=== PATIENT | female | born 1940 | race Caucasian/White ===

== ENCOUNTER 2023-11-05 06:08 | Day surgery (SDC) | payer MEDICARE, OTHER, SELFPAY ==
--- NOTE | 2023-10-05 10:08 | CM ---
Patient is scheduled for an elective L TKR on 11/20- he is a same day patient. Spoke with patient prior to surgery. Introduced role of Orthopedic Navigator. Patient reports that she lives with her in a two story home. There are three steps
to enter and a flight of steps to the second floor. She currently functions independently. She has a cane and rolling walker. She has had VN services through [facility]. PCP is Joelle Christensen.
Discussed orthopedic program and post surgical plans. Reviewed that she will have VN services initially ([email or web address].gov website and ratings reviewed) and will then start outpatient PT. Patient selects [facility] (face sheet faxed to [facility] to facilitate
confirmation of benefits) for her home care needs and will go to [facility] for outpatient PT.
Patient is in agreement with plan and states that her will be home with her.
Patient will complete online education.
Plan: Orthopedic Navigator will remain available to assist with the care of patient and will reassess discharge needs after surgery.
[2023-10-17 13:24] VITALS: BMI 23.8
[2023-10-17 13:45] LABS: Hematocrit 34.8 % (37.0-47.0); Hemoglobin 11.7 g/dL (12.0-16.0); Mean Corp Hgb Conc. 33.6 g/dL (33.0-37.0); Mean Corpuscular Hgb 32.3 pg (27.0-31.0); Mean Corpuscular Volume 96.1 fL (81.0-99.0); Mean Platelet Volume 11.2 fL (7.4-10.4); Platelet Count 277 10^3/uL (130-400); Red Blood Cell Count 3.62 10^6/uL (4.20-5.40); Red Cell Dist. Width 13.4 % (11.5-14.5); White Blood Cell Count 4.8 10^3/uL (4.8-10.8)
[2023-10-17 14:03] LABS: ALT (SGPT) 17 U/L (0-35); AST (SGOT) 32 U/L (14-36); Albumin 4.1 g/dl (3.5-5.0); Alkaline Phosphatase 57 U/L (38-126); Blood Urea Nitrogen 17 mg/dl (7-17); Calcium 9.6 mg/dl (8.4-10.2); Carbon Dioxide 26 mmol/L (22-30); Chloride 104 mmol/L (98-107); Estimated Creatinine Clearance 48 ml/min; Glucose 77 mg/dl (70-99); Potassium 4.4 mmol/L (3.5-5.1); Sodium 135 mmol/L (135-145); Total Bilirubin 0.6 mg/dl (0.2-1.3); Total Protein 6.8 g/dl (6.3-8.2); eGFR > 60.00
[2023-10-17 14:30] LABS: Glycohemoglobin (HgbA1c) 5.1 % (4.0-5.6)
[2023-10-17 15:39] VITALS: BMI 23.8
[2023-11-05] VITALS (14 sets, daily range): BP systolic 111–156; BP diastolic 52–98; PULSE 77; O2SAT 96; BMI 23.8
[2023-11-05] MEDS: NORMOSOL-R 1000 IV ×2 (06:31→09:37)
[2023-11-05] MEDS: CELEBREX 200 MG PO (06:32)
[2023-11-05] MEDS: TYLENOL 650 MG PO (06:32)
--- NOTE | 2023-11-05 07:32 | W.DS.TRANS ---
DC Summary - Food Supervisor
-
Discharge Instructions:
Sleep Apnea Risk Low
Discharge Diagnosis/Procedures L ORIN [place] 11/05/23
Diet As tolerated
Activity With Walker
Driving Restrictions No driving
Instructions:
Stand-Alone Forms: SDS Total Hip and Knee D/C
Changes to Home Medications: Yes
Discharge Medications:
DC Medications w/original date entered in [employer]
montelukast 10 mg tablet 10 mg PO DAILY Allergies 09/01/16
calcium carbonate 600 mg PO BID Supplement 02/04/19
gabapentin 300 mg capsule 600 mg PO HS Pain 02/04/19
simvastatin 20 mg tablet 20 mg PO DAILY High cholesterol 02/04/19
tramadol 50 mg tablet 100 mg PO HS Pain 02/04/19
L.acidoph, paracasei,B. lactis 10 billion cell capsule 1 ea PO DAILY Gastrointestinal issue 12/25/20
famotidine 20 mg tablet (Acid Controller) 20 mg PO BID Gastrointestinal issue 12/25/20
levothyroxine 75 mcg tablet 75 mcg PO HS Thyroid 12/25/20
multivitamin 1 ea PO DAILY Supplement 12/25/20
albuterol sulfate 90 mcg/actuation aerosol inhaler (ProAir HFA) 2 puff inhalation Q6H PRN asthma 10/16/23
budesonide 90 mcg/actuation breath activated powder inhaler 2 inh inhalation DAILY 10/16/23
cetirizine 10 mg tablet 10 mg PO DAILY 10/16/23
polyethylene glycol 3350 17 gram/dose oral powder (Miralax) 4 g PO DAILY 10/16/23
psyllium husk 3.4 gram/5.4 gram oral powder (Metamucil) 1 tbsp PO DAILY 10/16/23
dexamethasone 4 mg tablet 4 mg PO BID inflammation #6 tabs 10/17/23
meloxicam 15 mg tablet 15 mg PO DAILY anti-inflammatory #14 tabs 10/17/23
mupirocin 2 % topical ointment 1 applic topical BID infection prevention #1 tube 10/17/23
oxycodone 5 mg tablet 5 - 10 mg (1 - 2 x 5 mg) PO Q6HPRN PRN 1 tab moderate-2 tabs severe pain #30 tabs 10/17/23
acetaminophen 325 mg capsule (Tylenol) 650 mg (2 x 325 mg) PO QID #2 caps 11/05/23
aspirin 325 mg tablet 325 mg PO DAILY blood clot prevention #1 tab 11/05/23
docusate sodium 100 mg capsule (Colace) 100 mg PO BID stool softner #1 cap 11/05/23
lisinopril 10 mg tablet 10 mg PO DAILY Blood pressure #0 tabs 11/05/23
magnesium hydroxide 400 mg/5 mL oral suspension (Milk of Magnesia) 30 ml PO HS PRN Constipation #1 mL 11/05/23
sennosides 8.6 mg tablet (Senokot) 17.2 mg (2 x 8.6 mg) PO BID laxative #2 tabs 11/05/23
Home Medication Changes
dexamethasone 4 mg tablet 4 mg PO BID inflammation #6 tabs 10/17/23
meloxicam 15 mg tablet 15 mg PO DAILY anti-inflammatory #14 tabs 10/17/23
mupirocin 2 % topical ointment 1 applic topical BID infection prevention #1 tube 10/17/23
oxycodone 5 mg tablet 5 - 10 mg (1 - 2 x 5 mg) PO Q6HPRN PRN 1 tab moderate-2 tabs severe pain #30 tabs 10/17/23
acetaminophen 325 mg capsule (Tylenol) 650 mg (2 x 325 mg) PO QID #2 caps 11/05/23
aspirin 325 mg tablet 325 mg PO DAILY blood clot prevention #1 tab 11/05/23
Pending Results: No
--- NOTE | 2023-11-05 10:46 | CM ---
Patient had planned L TKR today. Met with patient and her at bedside to review discharge plans. Patient will be returning home today with services through [facility]. On , 11/07, patient will start outpatient PT at [facility]. Reviewed MD
follow up in two weeks and patient is aware of need to schedule appointment.
Patient has her rolling walker here with her.
PT and [facility] were kept updated as to progress and discharge plans.
[2023-11-05] MEDS: ANCEF 5 IV (11:06)
--- NOTE | 2023-11-05 11:58 | SUR.OPER ---
Patient up and dressed and ready for therapy at 1215. Patient voided on the commode. Will monitor patient.
== END 2023-11-05 12:39 | disposition home or self-care (01) ==
LOC: SDS 06:08
PROVIDERS: ATTENDING PHYSICIAN Specialist; FAMILY PHYSICIAN Family Medicine
DX: M17.12 Unilateral primary osteoarthritis, left knee (principal)
CPT/HCPCS: 27447; C1776; C1713; 36415; 73560; 80053; 83036; 85027; 86850; 86900; 86901; 87070; 93005; 97161

== ENCOUNTER 2024-06-19 17:02 | Emergency (ER) | payer MEDICARE, OTHER, SELFPAY ==
[2024-06-19 17:04] VITALS: BP 145/103
[2024-06-19 17:29] VITALS: BP 141/77
[2024-06-19 17:31] VITALS: BMI 21.4
[2024-06-19 17:53] LABS: % Basophils 0.8 % (0-2); % Eosinophils 0.8 % (0-6); % Immature Granulocytes 0.3 % (0-0.5); % Lymphocytes 21.6 % (20.5-51.1); % Monocytes 19.7 % (1.7-9.3); % Neutrophils 56.8 % (42.2-75.2); Absolute Lymphocytes 0.8 10^3/uL (1.2-3.4); Absolute Monocytes 0.7 10^3/uL (0.1-0.6); Absolute Neutrophils 2.1 10^3/uL (1.4-6.5); Hematocrit 37.9 % (37.0-47.0); Hemoglobin 12.8 g/dL (12.0-16.0); Mean Corp Hgb Conc. 33.8 g/dL (33.0-37.0); Mean Corpuscular Hgb 31.9 pg (27.0-31.0); Mean Corpuscular Volume 94.5 fL (81.0-99.0); Nucleated Red Blood Cells % 0 %; Platelet Count 244 10^3/uL (130-400); Red Blood Cell Count 4.01 10^6/uL (4.20-5.40); White Blood Cell Count 3.6 10^3/uL (4.8-10.8)
[2024-06-19 18:07] LABS: ALT (SGPT) 22 U/L (0-35); AST (SGOT) 45 U/L (14-36); Albumin 3.9 g/dl (3.5-5.0); Alkaline Phosphatase 49 U/L (38-126); Blood Urea Nitrogen 15 mg/dl (7-17); Calcium 9.2 mg/dl (8.4-10.2); Carbon Dioxide 25 mmol/L (22-30); Chloride 94 mmol/L (98-107); Estimated Creatinine Clearance 59 ml/min; Glucose 92 mg/dl (70-99); Potassium 4.4 mmol/L (3.5-5.1); Sodium 130 mmol/L (135-145); Total Bilirubin 0.2 mg/dl (0.2-1.3); Total Protein 6.5 g/dl (6.3-8.2); eGFR > 60.00
[2024-06-19 18:16] LABS: COVID-19 Antigen Negative (Negative)
[2024-06-19] MEDS: TAMIFLU 75 MG PO (18:48)
[2024-06-19] MEDS: DUONEB 3 ML INH (18:48)
--- NOTE | 2024-06-19 19:16 | ED.GENMED ---
History of Present Illness
General
Chief Complaint: Breathing Problem
Source: patient
Exam Limitations: none
Time Seen by Provider: 06/19/24 17:21
Nursing documentation reviewed up to this point in time: agreed with
History of Present Illness
History of Present Illness:
Patient to ED with complaint of cough, SOB x 4 days. SHe was seen by PCP today and sent to ED due to tachycardia. Denies fever/chills. +dizziness, palpitations. with similar symptoms.
Past History
Past History
ED Past Medical History: Asthma (Seasonal), Cancer (Breast), HTN, Hypercholesterolemia, Hypothyroidism and Other (Colitis, lower GI bleeding,)
ED Past Surgical History: Other (L breast mastectomy January 08 2017, Then 3 weeks after chemo started Transflap)
Social History
Tobacco: Non-smoker
Alcohol: Occasional
Drug: None
Personal:
Living: with family
Employment: Not employed
Family History
Family History: Other (Noncontributory)
Review of Systems
Review of Systems
Allergies reviewed?: Yes
All Other Systems: ROS reviewed and negative except as documented in HPI and ROS
Constitutional: Reports fatigue
EENT: Reports no symptoms
Respiratory: Reports cough
Cardiac: Reports palpitations
ABD/GI: Reports no symptoms
: Reports no symptoms
Musculoskeletal: Reports no symptoms
Skin: Reports no symptoms
Neurological: Reports dizzy
Psychiatric: Reports no symptoms
Phy Exam
General Physical Exam
General Presentation: well appearing and no apparent distress
General age: appears stated age
General Skin: warm and dry
General Habitus: normal
General Mental: alert
Cardiovascular Exam
Cardiovascular Exam: regular rate/rhythm and no edema
Pulmonary Exam
Pulmonary Exam: lungs clear and no respiratory distress
Gastrointestinal Exam
Gastrointestinal Exam: normal bowel sounds, non tender, soft and no organomegaly
Musculoskeletal Exam
Musculoskeletal Exam: full ROM and neuro vasc intact
Skin Exam
Skin Exam: normal color, warm/dry and no rash
Psychiatric Exam
Psychiatric Exam: normal mood/affect
Scores
Heart Failure Risk
Heart Failure Risk Score: Not Applicable
Course
Orders/Labs/Results
Orders:
Orders
06/19/24 17:06
EKG [Electrocardiogram (*1)] Urgent
Reason for Study: Shortness of Breath
EKG- Treatment ONCE
06/19/24 17:23
CR Chest - 2 Views Urgent
Comment:
Reason For Exam: SOB
06/19/24 17:43
COVID-19 Antigen Urgent
Source: Nasal Swab
Complete Blood Count/With Diff Urgent
Comprehensive Metabolic Panel Urgent
Influenza A+B Rapid Molecular Urgent
CESIA Source: Nasal Swab
Specimen Description:
06/19/24 18:26
Ipratropium/Albuterol Sulfate [Duoneb] 3 ml INH R NOW STA
Oseltamivir Phosphate [Tamiflu] 75 mg PO NOW STA
Abnormal Lab Results
06/19/24
17:43
WBC 3.6 L 10^3/uL
(4.8-10.8)
RBC 4.01 L 10^6/uL
(4.20-5.40)
MCH 31.9 H pg
(27.0-31.0)
MPV 11.0 H fL
(7.4-10.4)
Absolute Lymphs (auto) 0.8 L 10^3/uL
(1.2-3.4)
Absolute Monos (auto) 0.7 H 10^3/uL
(0.1-0.6)
Monocytes % 19.7 H %
(1.7-9.3)
Sodium 130 L mmol/L
(135-145)
Chloride 94 L mmol/L
(98-107)
AST 45 H U/L
(14-36)
06/19/24 17:43
06/19/24 17:43
Vital Signs
Initial and Last Documented VS:
Initial Vital Signs
Temp Pulse Resp BP Pulse Ox
98.3 F 110 23 145/103 95
06/19/24 17:04 06/19/24 17:04 06/19/24 17:04 06/19/24 17:04 06/19/24 17:04
Last Documented Vital Signs
Temp Pulse Resp BP Pulse Ox
98.3 F 110 19 141/77 100
06/19/24 17:04 06/19/24 17:04 06/19/24 17:30 06/19/24 17:29 06/19/24 17:30
*Radiology
Radiology exam reviewed: radiology read reviewed
*Pulse Oximetry
Patient hypoxic: no
*Critical Care Note
Total Time (30-74mins, 75-104mins- exclusive of procedures): Not Applicable
ED Attending Note
-
Portions of this chart may have been created with voice recognition software.� Occasional wrong word or��sound alike� substitutions may have occurred due to the inherent limitations of voice recognition software.
Discharge Plan
Departure
Patient Disposition: Home (Routine Discharge)
Date of Disposition: 06/19/24
Time of Disposition: 18:54
Patient with high blood pressure during this ER visit?: No
Condition: Good
Covid-19: Not Applicable
Discharge Problem:
Influenza A
Instructions: Flu, Adult ED
Prescriptions:
New
oseltamivir [Tamiflu] 75 mg capsule
75 mg PO BID 5 Days Qty: 10 0RF
No Action
montelukast 10 MG tablet
10 mg PO DAILY
tramadol 50 MG tablet
100 mg PO HS
calcium carbonate 600 MG tablet
600 mg PO BID
simvastatin 20 MG tablet
20 mg PO DAILY
gabapentin 300 MG capsule
600 mg PO HS
multivitamin 1 EACH tablet
1 ea PO DAILY
famotidine [Acid Controller] 20 MG tablet
20 mg PO BID
L.acidoph, paracasei,B. lactis 1 EACH capsule
1 ea PO DAILY
levothyroxine 75 MCG tablet
75 mcg PO HS
cetirizine 10 mg Tablet
10 mg PO DAILY
polyethylene glycol 3350 [Miralax] 17 gram/dose Powder
4 g PO DAILY
Metamucil 3.4 gram/5.4 gram Powder
1 tbsp PO DAILY
albuterol sulfate [ProAir HFA] 90 mcg/actuation Hfa Aerosol Inhaler
2 puff INHALATION Q6H PRN (Reason: asthma)
budesonide 90 mcg/actuation Aerosol Powdr Breath Activated
2 inh INHALATION DAILY
mupirocin 2 % ointment
1 applic topical BID Qty: 1 0RF
Patient Comments:
started treatment on sunday11/02/23 and was taking BID, last took at home 11/05/23 in am
meloxicam 15 mg tablet
15 mg PO DAILY Qty: 14 0RF
Rx Instructions:
take with food
post-op
dexamethasone 4 mg tablet
4 mg PO BID Qty: 6 0RF
Rx Instructions:
take with food
post-op use only
oxycodone 5 mg tablet
5 - 10 mg PO Q6HPRN PRN (Reason: 1 tab moderate-2 tabs severe pain) Qty: 30 0RF
Rx Instructions:
Dx surgery
ongoing therapy
Post-op use
docusate sodium [Colace] 100 mg capsule
100 mg PO BID Qty: 1 0RF
aspirin 325 mg tablet
325 mg PO DAILY Qty: 1 0RF
Rx Instructions:
Take with food
magnesium hydroxide [Milk of Magnesia] 400 mg/5 mL suspension
30 ml PO HS PRN (Reason: Constipation) Qty: 1 0RF
sennosides [Senokot] 8.6 mg tablet
17.2 mg PO BID Qty: 2 0RF
acetaminophen [Tylenol] 325 mg capsule
650 mg PO QID Qty: 2 0RF
lisinopril 10 MG tablet
10 mg PO DAILY Qty: 0 0RF
Rx Instructions:
Monitor BP 3 days post-op--Hold Systolic BP <130 if taking Oxy
Activity Restrictions/Additional Instructions:
Follow up with your family doctor
Interventions
Interventions:
*Risk Screen - Suicide Last Done: 06/19/24 17:04
*Neglect/Abuse Screening Last Done: 06/19/24 17:04
ED- Cardiac Assessment Last Done: 06/19/24 18:08
ED- Pulmonary Assessment Last Done: 06/19/24 18:08
Discharge Date and Time
Print Language: UKRAINIAN
== END 2024-06-19 19:49 | disposition home or self-care (01) ==
LOC: EMR 17:02
PROVIDERS: Nurse Practitioner; EMERGENCY PHYSICIAN Emergency Medicine; FAMILY PHYSICIAN Family Medicine
DX: J10.1 Influenza due to other identified influenza virus with other respiratory manifestations (principal); I10 Essential (primary) hypertension; E78.00 Pure hypercholesterolemia, unspecified; E03.9 Hypothyroidism, unspecified; J45.909 Unspecified asthma, uncomplicated; Z85.3 Personal history of malignant neoplasm of breast; Z90.12 Acquired absence of left breast and nipple
CPT/HCPCS: 99283; 94640; 71046; 80053; 85025; 87502; 87811; 93005